=== PATIENT | female | born 1995 | race Caucasian/White ===

== ENCOUNTER 2016-12-14 23:09 | Emergency (ER) | payer OTHER ==
--- NOTE | ~2016-12-14 | CR72 ---
[facility]. [facility] A Service of [facility] & [facility] RADIOLOGY TEXT RESULTS PATIENT: HAROON RIVAS LOCATION: SED : 95 UNIT #: [id number] AGE: [address]: SAE MERCADO SEX: F ORDER DR: [id number] [place] [id number] E MR#: [id number] Acc #: [id number] NAME: HAROON RIVAS : 1995 SEX: F STUDY DATE/TIME: 12/14/2016 23:24 UNIT: SED ROOM: STUDY DESCRIPTION: CR Chest Single View Portable Attending Physician: Sae Mercado Aprn Ordering Physician: Physician Non-Staff Primary Care Physician: No Primary Care Physician MEDICAL IMAGING REPORT This report is preliminary unless electronic signature is present. EXAM Chest x-ray 12/14/2016 HISTORY 21-year-old female in the ED complaining of atypical left side inspiratory chest pain, present for about 24 hours prior to arrival. TECHNIQUE AP portable upright chest x-ray. FINDINGS The examination is negative. The lungs are expanded and clear. No visible pneumothorax, pulmonary infiltrate or pleural effusion. Heart size and pulmonary vascularity are normal. IMPRESSION Negative chest. No change since 11/05/2016. Dictated by... Kleber Alicia M.D. THIS IS AN ELECTRONICALLY VERIFIED REPORT Kleber Alicia M.D. at 12/15/2016 9:42 PM RITAW/rafiq TD: 12/15/2016 12:01 JOB #: [id number] MEDICAL IMAGING REPORT Page 1 of 1
[~2016-12-14 23:09] MED LIST: ACETAMINOPHEN PO; ALBUTEROL17 GM INH; ANUSOL-HC CREAM30 G1 EXT; AURALGAN EAR DR14 ML OT; BACTRIM DS TABL1 TA1 PO; BIRTH CONTROL PILL; CIPRO PO; CLARITIN10 MG PO; DICLOFENAC SODI50 MG PO; DONNATAL1 TA1 PO; FLEXERIL PO; FLEXERIL10 MG PO; FLONASE 0.05% N16 G1; FLOXIN OTIC5 ML AU; IBUPROFEN PO; IBUPROFEN800 MG PO; INHALER; KEFLEX500 M1 PO; LEVAQUIN PO; MACROBID100 MG PO; MIRALAX17 GM PO; MOTRIN400 MG PO; MUCINEX DM1 TAB.SR . PO; NAPROSYN500 MG PO; NAPROXEN PO; NEOMYCIN-POLYMY10 ML OT; NITROFURANTOIN100 M3 PO; NO MEDICATIONS; PAXIL PO; PERCOCET5/325 PO; PHENERGAN PO; PRILOSEC20 M1 PO; PYRIDIUM PO; PYRIDIUM100 MG PO; STOMACH MEDS; TYLENOL #3 PO; ULTRAM PO; VICODIN 5/1 TAB 5/50 PO; VOLTAREN50 MG PO; VOLTAREN75 MG PO; ZYRTEC PO; [UNRECOGNIZED DRUG - REMARK] PO
== END 2016-12-15 00:57 | disposition home or self-care (01) ==
LOC: SED 23:09
DX: M94.0 Chondrocostal junction syndrome [Tietze] (principal); F17.210 Nicotine dependence, cigarettes, uncomplicated; Z88.0 Allergy status to penicillin; Z88.8 Allergy status to other drugs, medicaments and biological substances; Z98.890 Other specified postprocedural states
CPT/HCPCS: 71010; 84703; 99284

== ENCOUNTER 2017-01-10 23:41 | Emergency (ER) | payer OTHER ==
--- NOTE | ~2017-01-10 | CR20 ---
[facility]. [facility] A Service of [facility] & [facility] RADIOLOGY TEXT RESULTS PATIENT: HAROON RIVAS LOCATION: SED : 95 UNIT #: [id number] AGE: [address]: Darwin Dickson MD SEX: F ORDER DR: [id number] [place] [id number] E MR#: [id number] Acc #: [id number] NAME: HAROON RIVAS : 1995 SEX: F STUDY DATE/TIME: 01/11/2017 0:38 UNIT: SED ROOM: STUDY DESCRIPTION: CR Ankle Min 3 Views Lt Attending Physician: Darwin Dickson M.D. Ordering Physician: Darwin Dickson M.D. Primary Care Physician: Primary Care Physician No MEDICAL IMAGING REPORT This report is preliminary unless electronic signature is present. EXAM Left ankle HISTORY Pain since yesterday. No known injury. FINDINGS AP, lateral, and oblique projections of the ankle show satisfactory integrity of the joint mortise with a smooth articular surface. There is no identifiable fracture, dislocation, or radiopaque foreign body. IMPRESSION Normal ankle. Dictated by... Kyle Winter M.D. THIS IS AN ELECTRONICALLY VERIFIED REPORT Kyle Winter M.D. at 01/11/2017 1:23 PM Christal TD: 01/11/2017 09:00 JOB #: [id number] MEDICAL IMAGING REPORT Page 1 of 1
== END 2017-01-11 01:05 | disposition home or self-care (01) ==
LOC: SED 23:41
DX: S96.912A Strain of unspecified muscle and tendon at ankle and foot level, left foot, initial encounter (principal); X50.9XXA Other and unspecified overexertion or strenuous movements or postures, initial encounter; Y92.69 Other specified industrial and construction area as the place of occurrence of the external cause
CPT/HCPCS: 29540; 73610; 99283

== ENCOUNTER 2017-03-13 22:24 | Emergency (ER) | payer OTHER ==
--- NOTE | ~2017-03-13 | CR20 ---
[facility] A Service of [facility] & [facility] RADIOLOGY TEXT RESULTS PATIENT: HAROON RIVAS LOCATION: [facility] : 95 UNIT #: [id number] AGE: [address]: Graham Romero MD SEX: F ORDER DR: [id number] [facility] [address] [place], [place] [address] [id number] E MR#: [id number] Acc #: [id number] NAME: HAROON RIVAS : 1995 SEX: F STUDY DATE/TIME: 03/14/2017 UNIT: [facility] ROOM: STUDY DESCRIPTION: CR Ankle Min 3 Views Lt Attending Physician: Graham Romero M.D. Ordering Physician: Graham Romero M.D. MEDICAL IMAGING REPORT This report is preliminary unless electronic signature is present EXAM Left ankle 03/13, 23:25 INDICATIONS Ankle pain after twisting injury, fall today. COMPARISON 01/11/2017. FINDINGS AP, lateral, and oblique projections of the ankle show satisfactory integrity of the joint mortise with a smooth articular surface. There is no identifiable fracture, dislocation, or radiopaque foreign body. IMPRESSION Normal ankle. Dictated by... Chuck English Jr., M.D. THIS IS AN ELECTRONICALLY VERIFIED REPORT Chuck English Jr., M.D. at 03/14/2017 9:23 PM RLK/bandar TD: 03/14/2017 09:05 JOB #: [id number] MEDICAL IMAGING REPORT Page 1 of 1 COPY
== END 2017-03-14 00:30 | disposition home or self-care (01) ==
LOC: CED 22:24
DX: O9A.211 Injury, poisoning and certain other consequences of external causes complicating pregnancy, first trimester (principal); S93.432A Sprain of tibiofibular ligament of left ankle, initial encounter; O99.341 Other mental disorders complicating pregnancy, first trimester; F41.9 Anxiety disorder, unspecified; O99.331 Smoking (tobacco) complicating pregnancy, first trimester; F17.200 Nicotine dependence, unspecified, uncomplicated; Z3A.09 9 weeks gestation of pregnancy
CPT/HCPCS: 29505; 73610; 99283

== ENCOUNTER 2017-06-14 17:08 | Emergency (ER) | payer OTHER ==
[2017-06-14] MEDS ORDERED: PHENERGAN25 MG (17:16)
[2017-06-14] MEDS ORDERED: PRENATAL MULTI1 EAC3 (17:16)
[2017-06-14 18:12] LABS: BASOPHIL# 0.1 X10e3 (0-0.3); BASOPHIL% 0.7 % (0-2.5); EOSINOPHIL% 0.4 % (0.0-7.0); HEMATOCRIT 34.8 % (35.0-45.0); HEMOGLOBIN 11.8 gm/dL (12.0-16.0); LYMPHOCYTE# 2.5 X10e3 (1.0-3.5); LYMPHOCYTE% 21.9 % (17.0-45.0); MEAN CELL VOLUME 92.5 FL (83-96); MEAN CORPUSCULAR HEMOGLOBIN 31.3 PG (28-34); MEAN CORPUSCULAR HGB CONC 33.8 g/dL (30-36); MEAN PLATELET VOLUME 7.6 FL (6.5-11.5); MONOCYTE# 0.8 X10e3 (0-1.0); MONOCYTE% 6.5 % (3.0-12.0); NEUTROPHIL# 8.2 X10e3 (1.5-7.1); NEUTROPHIL% 70.5 % (40-75); PLATELET COUNT 308 X10e3 (140-420); RED BLOOD COUNT 3.76 X10e (3.90-5.30); RED CELL DISTRIBUTION WIDTH 13.6 % (11.0-15.5); WHITE BLOOD COUNT 11.6 X10e3 (4.0-10.5)
[2017-06-14 18:13] LABS: DIFF IND NO
[2017-06-14 18:21] LABS: INR 0.9; PROTHROMBIN TIME (PATIENT) 10.1 SECONDS (9.5-12.4)
[2017-06-14 18:29] LABS: ALBUMIN SERUM 3.2 g/dL (3.5-5.0); BILIRUBIN, DIRECT 0.1 mg/dL (0.0-0.2); BILIRUBIN,INDIRECT 0.1 mg/dL (0.0-0.9); BILIRUBIN,TOTAL 0.2 mg/dL (0.2-2.0); BUN/CREATININE RATIO 18.33; CALCIUM SERUM 8.6 mg/dL (8.4-10.2); CREATININE SERUM 0.6 mg/dL (0.6-1.4); GLOM FILT RATE Estimated 129.4 mL/min (>60); POTASSIUM 3.6 mmol/L (3.5-5.1); PROTEIN TOTAL SERUM 6.7 g/dL (6.0-8.3)
== END 2017-06-14 18:20 ==
LOC: SED 17:08
PROVIDERS: Emergency Medicine
DX: O26.892 Other specified pregnancy related conditions, second trimester (principal); R10.31 Right lower quadrant pain; F17.200 Nicotine dependence, unspecified, uncomplicated; Z88.0 Allergy status to penicillin; Z88.8 Allergy status to other drugs, medicaments and biological substances; Z91.018 Allergy to other foods; Z3A.22 22 weeks gestation of pregnancy
CPT/HCPCS: 36415; 80048; 80076; 83690; 85025; 85610; 85730; 99285